=== PATIENT | female | born 1970 | race Asian ===

== ENCOUNTER 2019-09-27 22:03 | Emergency (ER) | payer MEDICAID ==
[~2019-09-27] VITALS: Ht 170.2 cm; Wt 56.2 kg
--- NOTE | 2019-09-27 22:25 | NUR ---
Pt refuses to answer any questions regarding past medical history, states "I don't think it's relevant! I just want to see the doctor for my eye." Pt very rude and acting belligerant towards nursing staff.
--- NOTE | 2019-09-27 22:29 | NUR ---
Dr. Michaels at bedside for MSE.
--- NOTE | 2019-09-27 22:55 | NUR ---
Discharge instructions provided to patient, yet patient states she would like to stay in ER and read all aftercare instructions.
--- NOTE | 2019-09-27 23:07 | NUR ---
Pt causing disruption to ER, acting rude to nursing staff in nursing station, stating "I want to speak with someone who speaks [place]!" Refuses to leave ER department after d/c paperwork. Addendum: 09/27/19 at 2331 by TPADOLINA Non[employer]gency [employer] called. Nursing insulation supervisor aware.
--- NOTE | 2019-09-27 23:10 | NUR ---
Pt told that she is discharged and ambulated out of ER with stable gait, in no acute distress.
== END 2019-09-27 23:32 | disposition home or self-care (01) ==
LOC: ER 22:07
DX: H57.12 Ocular pain, left eye (principal)
CPT/HCPCS: A4663